=== PATIENT | female | born 1990 | race Two or more races ===

== ENCOUNTER 2020-06-07 19:35 | Observation (INO) | payer MEDICAID, OTHER ==
[~2020-06-07] VITALS: Ht 154.9 cm; Wt 65.8 kg
== END 2020-06-07 22:10 | disposition home or self-care (01) ==
LOC: LDRP 19:35
PROVIDERS: ADMIT Obstetrics & Gynecology; ATTEND Obstetrics & Gynecology
DX: O26.892 Other specified pregnancy related conditions, second trimester (principal); R10.9 Unspecified abdominal pain; R51.9 Headache, unspecified; V89.2XXA Person injured in unspecified motor-vehicle accident, traffic, initial encounter; Y93.89 Activity, other specified; Y92.410 Unspecified street and highway as the place of occurrence of the external cause; Z3A.26 26 weeks gestation of pregnancy
CPT/HCPCS: 59025; 76805; 81002; G0378

== ENCOUNTER 2020-06-07 22:27 | Emergency (ER) | payer MEDICAID ==
[~2020-06-07] VITALS: Ht 154.9 cm; Wt 66.2 kg
[2020-06-07 22:30] VITALS: BP 117/80
== END 2020-06-08 00:43 | disposition left against medical advice (07) ==
LOC: ER 22:27
DX: M25.511 Pain in right shoulder (principal); M54.2 Cervicalgia; R51.9 Headache, unspecified; Z53.21 Procedure and treatment not carried out due to patient leaving prior to being seen by health care provider

== ENCOUNTER 2023-10-21 00:01 | Emergency (ER) | payer MEDICAID, OTHER ==
[~2023-10-21] VITALS: Ht 152.4 cm; Wt 78.1 kg
[2023-10-21 01:03] LABS: Basophils # (auto) 0 10 ^3/uL (0-0.2); Basophils % (auto) 0.3 % (0.0-2.0); Eosinophils # (auto) 0.3 10 ^3/uL (0-0.8); Eosinophils % (auto) 2.2 % (0.0-7.0); Hematocrit 36.7 % (36.0-46.0); Hemoglobin 13.2 g/dL (12.2-16.2); Lymphocytes # (auto) 2.3 10 ^3/uL (0.4-5.4); Lymphocytes % (auto) 20.3 % (10.0-50.0); Mean Corpuscular Hemoglobin 31.9 pg (28.0-32.0); Mean Corpuscular Hgb Conc. 35.9 g/dL (32.0-36.0); Mean Corpuscular Volume 88.7 fL (80.0-100.0); Monocytes % (auto) 9.1 % (0.0-12.0); Neutrophils # (auto) 7.7 10 ^3/uL (1.6-8.6); Neutrophils % (auto) 68.1 % (37.0-80.0); Red Blood Cells 4.14 10^6/uL (4.0-5.20); Red Cell Distribution Width 13.5 % (11.8-14.3); White Blood Cell 11.4 10^3/uL (4.4-10.8)
[2023-10-21 01:20] LABS: Urine Bacteria FEW /hpf (None Seen); Urine Blood 3+ /uL (Negative); Urine Budding Yeast OCCASIONAL /hpf (None Seen); Urine Clarity Clear (Clear); Urine Color Light-Yellow (Yellow); Urine Mucus FEW (None Seen); Urine Protein, UAD Negative (Negative); Urine Specific Gravity 1.011 (1.001-1.035); Urine Urobilinogen Normal (Negative); Urine WBC <1 /hpf (0 - 5); Urine pH 6.5 (5.0-9.0)
[2023-10-21 01:22] LABS: Chloride 105 mmol/L (98-107); Potassium 3.9 mmol/L (3.5-5.1); Sodium 137 mmol/L (136-145)
[2023-10-21 01:23] LABS: Anion Gap 7 (5-15); Carbon Dioxide 25 mmol/L (20-30)
[2023-10-21 01:24] LABS: Calcium 9.1 mg/dL (8.7-10.4)
[2023-10-21 01:29] LABS: BUN/Creatinine Ratio 8.8 (10.0-20.0); Blood Urea Nitrogen < 5 mg/dL (9-23); Glucose 86 mg/dL (74-106)
[2023-10-21 01:48] VITALS: BP 127/73; PULSE 82; RESP 18; TEMP 98.4; O2SAT 100
[2023-10-21] MEDS ORDERED: CEPH500C PO (02:36)
== END 2023-10-21 02:50 | disposition home or self-care (01) ==
LOC: ER 00:01
DX: O41.8X10 Other specified disorders of amniotic fluid and membranes, first trimester, not applicable or unspecified (principal); R10.2 Pelvic and perineal pain; R82.71 Bacteriuria; Z91.013 Allergy to seafood; Z3A.14 14 weeks gestation of pregnancy
CPT/HCPCS: 36415; 76805; 80048; 81001; 84702; 85025; 86850; 86900; 86901